=== PATIENT | female | born 1995 | race Caucasian/White ===

== ENCOUNTER → 2020-08-06 | Outpatient (CLI) | payer BC, OTHER ==
[~2020-08-06] MED LIST: BENADRYL 25MG C25 MG PO; COLACE 100MG C100 MG PO; IBUPROFEN600 MG PO; LORTAB 5-325 M1 EACH PO; PRENATAL VITAM1 EAC8 PO; ZANTAC150 MG PO
== END ==
LOC: RAD 12:30
DX: M25.552 Pain in left hip (principal)
CPT/HCPCS: 73502